=== PATIENT | female | born 2005 | race African-American/Black ===

== ENCOUNTER 2025-03-10 17:22 | Emergency (ER) | payer SELFPAY ==
--- NOTE | ~2025-03-10 | XR_ITS ---
EXAMINATION: XR hand RT 2V, 03/10/2025 17:40 CDT HISTORY: painful lump- dorsal proximal 3rd metacarpal COMPARISON: No comparisons available. Findings: No acute fracture or malalignment. No significant degenerative changes. Soft tissues unremarkable. Impression: No acute fracture or malalignment. Reviewed, dictated and finalized at location P. Impression: No acute fracture or malalignment.
[2025-03-10 17:28] VITALS: BP 143/92; PULSE 105; RESP 16; TEMP 36.3; O2SAT 100
--- NOTE | 2025-03-10 18:39 | ED.GENADULT ---
HPI - General Adult General Chief complaint: Skin/Abscess/Foreign Body Stated complaint: right hand bump Time Seen by Provider: 03/10/25 17:34 History of Present Illness HPI narrative: This is a 20-year-old female presenting with a very small painful lump to the back of her hand. It is less than 1 cm in diameter. She think she may have gotten bit by a bug but she is unsure. There is no redness or itching. There is no fluctuance. She does not have any other signs of illness. Related Data Allergies Allergy/AdvReac Type Severity Reaction Status Date / Time No Known Allergies Allergy Verified 03/10/25 17:31 Exam Narrative: APPEARANCE: No apparent distress. Head: atraumatic. EYES: EOMI, NOSE: Atraumatic NECK: Trachea midline RESPIRATORY: No increased rate of breathing CARDIOVASCULAR: RRR, ABDOMINAL: Non-distended MUSCULOSKELETAl: No obvious deformities NEURO: Alert. Moving 4/4 extremities SKIN:: Barely visible lump to the back of the hand at the proximal 3rd metacarpal. Is approximately 1/2 cm in diameter. It is very faint and difficult to see. No redness. No fluctuant mass. No head or blocked pore PSYCHIATRIC: Normal affect Course Vital Signs Vital signs: Vital Signs Temperature 97.4 F L 03/10/25 17:28 Pulse Rate 105 H 03/10/25 17:28 Respiratory Rate 16 03/10/25 17:28 Blood Pressure 143/92 H 03/10/25 17:28 Pulse Oximetry 100 03/10/25 17:28 Oxygen Delivery Room Air 03/10/25 17:28 Temperature 97.4 F L 03/10/25 17:28 Pulse Rate 105 H 03/10/25 17:28 Respiratory Rate 16 03/10/25 17:28 Blood Pressure 143/92 H 03/10/25 17:28 Pulse Oximetry 100 03/10/25 17:28 Oxygen Delivery Room Air 03/10/25 17:28 Medical Decision Making [facility] Narrative Medical decision making narrative: -Course: 20-year-old female presenting with a painful lump to the back of her hand. It is incredibly small in size. It is not red. It does not look infected or like an abscess. I do not see any injury or break in the skin. xray didnt show a foreign body. It is unclear on what exactly this tiny lump is. The patient was instructed to give it some time to either develop further or resolved and that we may be able to help her discover what her ailment is. Given pcp f/u. Vital Signs Vital Signs: Vital Signs Temperature 97.4 F L 03/10/25 17:28 Pulse Rate 105 H 03/10/25 17:28 Respiratory Rate 16 03/10/25 17:28 Blood Pressure 143/92 H 03/10/25 17:28 Pulse Oximetry 100 03/10/25 17:28 Oxygen Delivery Room Air 03/10/25 17:28 Temperature 97.4 F L 03/10/25 17:28 Pulse Rate 105 H 03/10/25 17:28 Respiratory Rate 16 03/10/25 17:28 Blood Pressure 143/92 H 03/10/25 17:28 Pulse Oximetry 100 03/10/25 17:28 Oxygen Delivery Room Air 03/10/25 17:28 Discharge Plan Discharge Clinical Impression: Lump Patient Disposition: Home Condition: Stable Instructions: Antibiotic Form Additional Instructions: You were seen for a lump on your hand. It is unclear what this is. Please follow-up with primary care physician listed below. If you feel is getting worse like you are having increased redness or swelling please return to the ED for re-evaluation. Patient Language: Malay Follow-up/Referrals: Sandro Guillaume MD [Physician, Family Practice] - 1 Week Referral Note: Establish pcp PHYSICIAN,PROGRESSIVE ASSEMBLER AND FITTER [Primary Care Provider, Internal Medicine]
--- OUTSIDE RECORDS SUMMARY | 2025-03-10 19:55 | XMS_ITS | Clinical Summary ---
Author Organization [facility] Address [address] [place] [id number] Care Team Providers Care Catering Chef Name Role Phone Samara Albarado R.N., Yingshan M.D. Primary Care Provider [phone] Allergies No known active allergies Medications No known medications Active Problems Problem Noted Date Diagnosed Date BMI (body mass index), pediatric, 95-99% for age 0901/27/2021 Menstrual period late 01/27/2021 Resolved Problems Problem Noted Date Diagnosed Date Resolved Date WCC (well child check) 01/27/202108/19 Immunizations Immunization Administration Dates Next Due Covid-19 Vaccine (Osteogenix), 1 2 Years to Adult 04/08/2021,03/18/2021 DTaP Vaccine 02/27/2011, 7,2005,07/25,2005 [id number] Vaccine 01/26/2009 DTaP/IPV 02/25/2014 Haemophilus b Conjugate Vacc ine (Tetanus Toxoid Conjugate) (Hiberix) (6 weeks+) 01/26/2009 Hep A, Pediatric, Unspecifie d Formulation - External 05/27/2007 Hepatitis A Vaccine, 18 Yrs or Less 01/26/2009 Hepatitis B Vaccine, (19 Yrs or Less) (3-Dose Series) 2005,2005,2005 Hib, Unspecified Formulation - External 05/28/2006,2005,2005,05/16 Human Papilloma Virus Vaccin e (Gardasil 9) 01/27/2021 Inactivated Polio Vaccine (IPV) 02/28/20 11,05/28/2006,2005,05/16 Influenza Vaccine (FLUARIX) (6 Months to Adult) 01/27/2021 MMRV Vaccine, 12 Yrs or Less 02/25/2014 Measles, Mumps & Rubella (MMR) 02/27/2011,2008,09/20/2006 MenACWY (Menveo-2) (2 months to 55 years) 07/19/2016 Meningococcal Mcv4o - External 07/19/2016 Pneumococcal Conjugate Vaccine (PCV7) ,2005,2005,05/16 Pneumococcal Conjugate Vacci ne (Prevnar 13) 01/26/2009 Tdap Vaccine 07/19/2016 Varicella Zoster Vaccine (Chickenpox) 02/27/2011 ,01/26/2009,02/05/2007 Family History Medical History Relation Comments Deafness Neg Hx Diabetes Neg Hx Dyslipidemia/Hypercholesterolemia Neg Hx Heart Disease (before age 5050 years old) Neg Hx Hypertension Neg Hx Infant Eye Disease (congenital cataracts, retino blastoma) Neg Hx Sudden Cardiac Neg Hx Tuberculosis Neg Hx Social History Tobacco Use Types Packs/Day Years Used Date Smoking Tobacco: Never Alcohol Use Standard Drinks/Week Comments No 0 (1 standard drink = 0.6 oz pur e alcohol) PHQ-2 Answer Date Recorded PHQ-2 Score 0 01/27/2021 Comments Unknown Sex and Gender Information Value Date Recorded Sex Assigned at Not on file 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 Gender Identity Not on file Sexual Orientation Not on file Last Filed Vital Signs Vital Sign Reading Time Taken Comments Blood Pressure 120/85 01/03/2023 1:00 PM CDT Pulse 110 01/03/2023 1:00 PM CDT Temperature 37 C (98.6 F) 01/03/2023 1:00 PM CDT Respiratory Rate 20 01/03/2023 1:00 PM CDT Oxygen Saturation 98% 01/03/2023 1:00 PM CDT Inhaled Oxygen Concentration - - Weight 101.1 kg (222 lb 14.2 oz) 2022 12:25 PM CDT Height 166 cm (5' 5.35) 01/27/2021 11: 19 AM CDT Body Mass Index - - Plan of Treatment Health Maintenance Due Date Last Done Comments HEPATITIS C SCREENING 2005 HIV SCREENING 02/29/2020 HPV VACCINE (2 - 3-dose series) 02/24/2021 DEPRESSION SCREENING 01/27/2022 01/27/2021 COVID-19 VACCINE (3 - 2024-2 6 season) 2025 04/08/2021, 03/18/2021 INFLUENZA VACCINE (#1) 2025 01/27/2021 TDAP/TD VACCINE (8 - Td or Tdap) 07/19/2026 07/19/2016, 02/25/2014, 02/27/2011, Additional history exists ZOSTER SERIES VACCINE (1 of 2) 2055 Adult RSV VACCINE (1 - 1-dos e 75+ series) 02/29/2080 Pneumococcal Vaccine: Childh ood and At-Risk Adult <65 yo Series Completed 01/26/2009, 05/28/2006 , 2005, Additional history exists Insurance [facility]/PEDS/TRANSPLANT [facility]/PEDS/TRANSPLANT [facility]/PEDS/TRANSPLANT Care Teams Catering Chef Relationship Specialty Start Date End Date Delphine Sow M.D. [address] [place] [address] M/C [address] [place] [address] PCP - General Pediatrics 01/27/21 Samara Albarado R.N. 02/19/10
--- OUTSIDE RECORDS SUMMARY | 2025-03-10 19:55 | XMS_ITS | Clinical Summary ---
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 Gender Identity Not on file Sexual Orientation Not on file Last Filed Vital Signs Vital Sign Reading Time Taken Comments Blood Pressure 116/77 02/05/2018 12:34 PM CDT Pulse 65 02/05/2018 12:34 PM CDT Temperature 36.2 C (97.2 F) 02/05/2018 12:34 PM CDT Respiratory Rate - - Oxygen Saturation - - Inhaled Oxygen Concentration - - Weight 55.4 kg (122 lb 2.2 oz) 02/05/2018 12:34 PM CDT Height 149.8 cm (4' 10.98) 02/05/2018 12:34 PM CDT Body Mass Index 24.69 02/05/2018 12:34 PM CDT Plan of Treatment Health Maintenance Due Date Last Done Comments HPV Vaccines (1 - 3-dose series) 02/29/2020 Meningococcal B Vaccine (1 o f 2 - Standard) 2021 DTaP,Tdap,and Td Vaccines (1 - Tdap) 02/29/2024 Hepatitis B Vaccines (1 of 3 - 19+ 3-dose series) 02/29/2024 COVID-19 Vaccine ( - 2023-2 5 season) 2025 Influenza Vaccine (#1) 2025 Zoster Vaccines (1 of 2) 2055 RSV Vaccine 60+ and Patients (1 - 1-dose 75+ series) 02/29/2080 HIB Vaccines Aged Out No longer eligi ble based on patient's age to complete this topic Hepatitis A Vaccines Aged Out No long er eligible based on patient's age to complete this topic IPV Vaccines Aged Out No longer eligi ble based on patient's age to complete this topic Meningococcal ACWY Vaccine Aged Out N o longer eligible based on patient's age to complete this topic Pneumococcal Vaccine: Pediat rics (0 to 5 Years) and At-Risk Patients (6 to 49 Years) Aged Out No longer eligible b ased on patient's age to complete this topic RSV Pediatric <20 Months Aged Out No longer eligible based on patient's age to complete this topic
== END 2025-03-10 19:23 | disposition home or self-care (01) ==
PROVIDERS: Emergency Provider Emergency Medicine
DX: R22.31 Localized swelling, mass and lump, right upper limb (principal)
CPT/HCPCS: 73120; 99283